=== PATIENT | male | born 1980 | race African-American/Black ===

== ENCOUNTER 2017-12-09 11:18 | Emergency (ER) | payer OTHER ==
[~2017-12-09] VITALS: Ht 170.2 cm; Wt 68.0 kg
[2017-12-09 11:21] VITALS: BP 132/70
--- NOTE | 2017-12-09 11:28 | NUR ---
Patient ambulated to bed 4 with family. RN evaluating patient at bedside.
--- NOTE | 2017-12-09 11:29 | NUR ---
Patient w/ assisted to bed 4.
--- NOTE | 2017-12-09 12:00 | NUR ---
patient complains of nausea and vomiting for almost 2 weeks. patient states no pain but has sore muscles on stomach from vomiting. patient has no medical history and no allergies to medications.
--- NOTE | 2017-12-09 13:10 | NUR ---
IS WITH PATIENT
[2017-12-09] MEDS ORDERED: MECLIZINE 25 MG TAB PO ONE (13:40)
[2017-12-09 14:13] VITALS: BP 128/67
--- NOTE | 2017-12-09 14:15 | NUR ---
pateint was discharged with in home care instructions and medication prescription of Meclizine. Patient understood the directions of in home care. Pt was ambulatory.
== END 2017-12-09 14:15 | disposition home or self-care (01) ==
LOC: MED 11:18
DX: H81.10 Benign paroxysmal vertigo, unspecified ear (principal)
CPT/HCPCS: 82948; 99283; J8597